=== PATIENT | female | born 1995 ===

== ENCOUNTER 2016-11-19 14:11 | Emergency (ER) | payer MEDICAID, OTHER ==
[2016-11-19 14:15] VITALS: BMI 18.6
[2016-11-19 14:19] VITALS: BP 106/68; PULSE 63; RESP 18; TEMP 98.3; O2SAT 100
--- NOTE | 2016-11-19 15:05 | ED PDOC ---
Arrival/HPI - General Chief Complaint: Lower Extremity Problem/Injury Time Seen by Provider: 11/19/16 15:03 Historian: Patient - History of Present Illness Narrative History of Present Illness (Text): 11/19/16 15:05 This 21 yo female presents to this ED c/o left medial foot pain x 3 days. Patient stated she tripped and fell , causing foot pain. Denies other complains. Denies head injury. Time/Duration: Other (3 days) Context: Home Past Medical History - Provider Review Nursing Documentation Reviewed: Yes - Past History Past History: No Previous - Infectious Disease Hx of Infectious Diseases: None - Tetanus Immunization Tetanus Immunization: Unknown - Psychiatric Hx Depression: No Hx Emotional Abuse: No Hx Physical Abuse: No Hx Substance Use: No - Surgical History Hx Tonsillectomy: Yes (2012) - Anesthesia Hx Anesthesia: Yes Hx Anesthesia Reactions: No - Suicidal Assessment Feels Threatened In Home Enviroment: No Family/Social History - Physician Review Nursing Documentation Reviewed: Yes Family/Social History: No Known Family HX Smoking Status: Never Smoked Hx Alcohol Use: No Hx Substance Use: No Hx Substance Use Treatment: No Allergies/Home Meds Allergies/Adverse Reactions: Allergies No Known Allergies Allergy (Verified 11/19/16 14:15) Home Medications: Home Meds Medication Instructions Recorded Confirmed Norethindrone-E.estradiol-Iron 1 tab PO DAILY 11/19/16 11/19/16 [ Tablet] Review of Systems - Review of Systems Constitutional: Normal. absent: Fatigue, Weight Change, Fevers Eyes: Normal ENT: Normal Respiratory: Normal Cardiovascular: Normal Gastrointestinal: Normal Genitourinary Female: Normal Musculoskeletal: Other (left foot pain) Skin: Normal Neurological: Normal Endocrine: Normal Hemo/Lymphatic: Normal Psychiatric: Normal Physical Exam Vital Signs Temp Pulse Resp BP Pulse Ox 11/19/16 14:18 98.3 F 63 18 106/68 100 Temperature: Afebrile Blood Pressure: Normal Pulse: Regular Respiratory Rate: Normal Appearance: Positive for: Well-Appearing, Non-Toxic, Comfortable Pain Distress: None Mental Status: Positive for: Alert and Oriented X 3 - Systems Exam Head: Present: Atraumatic, Normocephalic, Other (no raccoon sign. no dangelo sign) Pupils: Present: PERRL, Other (no hyphema) Extroacular Muscles: Present: EOMI Conjunctiva: Present: Normal Ears: Present: Normal, NORMAL TM, Normal Canal, Other (no hemotympanum). No: Erythema, TM Bulging, Fluid Mouth: Present: Moist Mucous Membranes Pharnyx: Present: Normal. No: ERYTHEMA, EXUDATE, TONSILS ENLARGED Nose (External): Present: Atraumatic Nose (Internal): Present: Normal Inspection Neck: Present: Normal Range of Motion, Trachea Midline, Other. No: Meningeal Signs, MIDLINE TENDERNESS, Paraspinal Tenderness Respiratory/Chest: Present: Clear to Auscultation, Good Air Exchange. No: Decreased Breath Sounds, Rales, Rhonchi, Tachypneic, Tender to Palpation Cardiovascular: Present: Regular Rate and Rhythm, Normal S1, S2. No: Murmurs Upper Extremity: Present: Normal Inspection, Normal ROM, NORMAL PULSES, Capillary Refill < 2s Lower Extremity: Present: Normal Inspection, NORMAL PULSES, Normal ROM, Tenderness (mild tenderness dorsla apsect of foot), Neurovascularly Intact, Capillary Refill < 2 s. No: Edema, CALF TENDERNESS, Swelling, Erythema Neurological: Present: GCS=15, CN II-XII Intact, Motor Func Grossly Intact, Normal Sensory Function, Normal Cerebellar Funct, Memory Normal Skin: Present: Warm, Dry, Normal Color. No: Rashes Psychiatric: Present: Alert, Oriented x 3 Medical Decision Making ED Course and Treatment: 11/19/16 16:06 Re-evaluation. Patient feels better. Discussed results and plan with patient who expresses understanding. All questions answered and there is agreement with the plan to discharge home with instructions. Patient stable for discharge. Return if symptoms persist or worsen. Re-evaluation Time: 16:06 Reassessment Condition: Re-examined, Improved - RAD Interpretation Narrative RAD Interpretations (Text): 11/19/16 16:06 Foot x-rays: No fx. or dislocation Radiology Orders: 11/19/16 15:03 FOOT LEFT 3 VIEWS ROUTINE [RAD] Stat - Medication Orders Current Medication Orders: Discontinued Medications Ibuprofen (Motrin Tab) 400 mg PO STAT STA Stop: 11/19/16 15:31 Last Admin: 11/19/16 15:34 Dose: 400 mg Disposition/Present on Arrival - Present on Arrival Any Indicators Present on Arrival: No History of DVT/PE: No History of Uncontrolled Diabetes: No Urinary Catheter: No History of Decub. Ulcer: No History Surgical Site Infection Following: None - Disposition Have Diagnosis and Disposition been Completed?: Yes Diagnosis: Foot pain Disposition: HOME/ ROUTINE Disposition Time: 16:07 Patient Plan: Discharge Condition: GOOD Discharge Instructions (ExitCare): Foot Sprain (ED) Additional Instructions: Call private doctor for follow up visit in 1-2 days. Take medication as instructed with food. Return to emergency if symptoms worsen. Prescriptions: Ibuprofen [Motrin] 400 mg PO Q8H PRN #20 tab PRN Reason: Pain, Severe (8-10) Referrals: Anshu Katz MD [Primary Care Provider] - Follow up with primary Jamison Gregorio DPM [Staff Provider] - Follow up with primary Forms: WORK NOTE
--- NOTE | 2016-11-19 16:17 | RAD ---
PROCEDURE: Left Foot Radiographs. HISTORY: foot pain COMPARISON: No prior study available for comparison. FINDINGS: BONES: No evidence of acute displaced fracture nor dislocation. The osseous structures appear intact. There are no cortical destructive changes seen JOINTS: . Joint spaces preserved. . SOFT TISSUES: Soft tissues unremarkable. OTHER FINDINGS: No radiopaque foreign bodies. IMPRESSION: No evidence of acute displaced fracture nor dislocation. Osseous structures appear intact. If symptoms persist or occult fracture suspected clinically consider repeat radiographs in 5-10 days as most fractures should become radiographically evident in this timeframe.
== END 2016-11-19 16:15 | disposition home or self-care (01) ==
LOC: ED 14:11
DX: M79.672 Pain in left foot (principal)

== ENCOUNTER 2018-04-14 19:15 | Emergency (ER) | payer SELFPAY ==
--- NOTE | 2018-04-14 19:57 | ED PDOC ---
Arrival/HPI <Law Cline - Last Filed: 04/14/18 20:19> - History of Present Illness Narrative History of Present Illness (Text): This is a 22 year old female with no significant PMH who presents with a 1 week history of itchy, red rash. Pt states that the rash, described as small bumps, started 1 week ago, but only began being itchy 4 days ago. Rash started on the arms, but is now more central. Pt has tried cortisone cream for the rash, without any relief of symptoms. Pt denies fever, chills, chest pain, difficulty breathing or swallowing, abdominal pain, n/v/d, recent travel to [facility]. Pt states that she is living with a relative who has a dog. PMD: [place] PMH: eczema PSH: tonsillectomy 2012 Meds: see MAR Allx: none Social history: denies etoh, smoking, drugs Time/Duration: 1 week Symptom Onset: Gradual Symptom Course: Worsening Associated Symptoms (Text): 04/14/18 19:49 pruritus <Joe Johnson - Last Filed: 04/15/18 04:15> - General Chief Complaint: Abnormal Skin Integrity Time Seen by Provider: 04/14/18 19:27 Past Medical History - Provider Review Nursing Documentation Reviewed: Yes - Past History Past History: No Previous - Infectious Disease Hx of Infectious Diseases: None - Tetanus Immunization Tetanus Immunization: Unknown - Reproductive Menopause: No - Cardiac Hx Cardiac Disorders: No - Pulmonary Hx Respiratory Disorders: No - Neurological Hx Neurological Disorder: No - HEENT Hx HEENT Disorder: Yes Other/Comment: Tonsilitis. - Renal Hx Renal Disorder: No - Endocrine/Metabolic Hx Endocrine Disorders: No - Hematological/Oncological Hx Blood Disorders: No - Integumentary Hx Dermatological Disorder: No - Musculoskeletal/Rheumatological Hx Musculoskeletal Disorders: No - Gastrointestinal Hx Gastrointestinal Disorders: No - Genitourinary/Gynecological Hx Genitourinary Disorders: No - Psychiatric Hx Psychophysiologic Disorder: No Hx Substance Use: No - Surgical History Hx Tonsillectomy: Yes (2012) - Anesthesia Hx Anesthesia: Yes Hx Anesthesia Reactions: No - Suicidal Assessment Feels Threatened In Home Enviroment: No <Joe Johnson - Last Filed: 04/15/18 04:15> Family/Social History - Physician Review Nursing Documentation Reviewed: Yes Family/Social History: Unknown Family HX Smoking Status: Never Smoked Hx Alcohol Use: No Hx Substance Use: No Hx Substance Use Treatment: No <Joe Johnson - Last Filed: 04/15/18 04:15> Allergies/Home Meds <Law Cline - Last Filed: 04/14/18 20:19> <RukhsanaNelson alvarengay - Last Filed: 04/15/18 04:15> Allergies/Adverse Reactions: Allergies No Known Allergies Allergy (Verified 11/19/16 14:15) Home Medications: Home Meds Medication Instructions Recorded Confirmed Norethindrone-E.estradiol-Iron 1 tab PO DAILY 11/19/16 11/19/16 [ Tablet] Review of Systems - Review of Systems Constitutional: Normal. absent: Fatigue, Fevers, Night Sweats Eyes: Normal ENT: Normal Respiratory: Normal. absent: SOB, Cough, Wheezing Cardiovascular: Normal. absent: Chest Pain, Palpitations Gastrointestinal: Normal. absent: Abdominal Pain, Diarrhea, Nausea, Vomiting Genitourinary Female: Normal Musculoskeletal: Normal. absent: Arthralgias, Joint Swelling Skin: Rash, Pruritis, Skin Lesions Neurological: Normal Endocrine: Normal Hemo/Lymphatic: Normal Psychiatric: Normal <TrenaelaineJoe - Last Filed: 04/15/18 04:15> Physical Exam Temperature: Afebrile Blood Pressure: Normal Pulse: Regular Respiratory Rate: Normal Appearance: Positive for: Well-Appearing, Non-Toxic, Comfortable Pain Distress: None Mental Status: Positive for: Alert and Oriented X 3 - Systems Exam Head: Present: Atraumatic, Normocephalic Conjunctiva: Present: Normal Mouth: Present: Moist Mucous Membranes Neck: Present: Normal Range of Motion Respiratory/Chest: Present: Clear to Auscultation. No: Respiratory Distress, Accessory Muscle Use, Wheezes, Rales, Retracting, Rhonchi Cardiovascular: Present: Regular Rate and Rhythm, Normal S1, S2 Abdomen: Present: Normal Bowel Sounds. No: Tenderness, Distention Upper Extremity: Present: Normal Inspection, NORMAL PULSES. No: Edema Lower Extremity: Present: Normal Inspection. No: CALF TENDERNESS, NORMAL PULSES Neurological: Present: GCS=15 Skin: Present: Warm, Dry, Rashes (diffuse erythematous, pruritic papular rash on the upper body only including chest arms and trunk (nothing on the face); blanching; no crusting, no vesicles), Normal Color Psychiatric: Present: Alert, Oriented x 3 <Joe Johnson - Last Filed: 04/15/18 04:15> Medical Decision Making ED Course and Treatment: Impression: Pt seen and evaluated with medical imaging specialist electrical parts reconditioner. Aware and agree with HPI, clinical findings, plan, and management. Pt, with no significant past medical history, presented for a pruritic rash for 1 week. Plan: -- Benadryl -- Prednisone -- Reassess and disposition - Medication Orders Current Medication Orders: Discontinued Medications Diphenhydramine HCl (Benadryl) 50 mg PO STAT STA Stop: 04/14/18 20:04 Prednisone (Prednisone Tab) 40 mg PO STAT STA Stop: 04/14/18 20:05 <Law Cline - Last Filed: 04/14/18 20:19> ED Course and Treatment: 04/14/18 20:00 Benadryl PO and prednisone PO 04/14/18 20:35 On re-evaluation pt reports that the itching is better. She continues to have no cardiopulmonary compromise and no other complaints. 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 Pt understands and agrees with discharge plan. Re-evaluation Time: 20:20 Reassessment Condition: Improving,but remains with symptoms <Joe Johnson - Last Filed: 04/15/18 04:15> - PA / SKYDIVING INSTRUCTOR / Resident Statement FINESSE has reviewed & agrees with the documentation as recorded. FINESSE has examined the patient and agrees with the treatment plan. <Law Cline - Last Filed: 04/14/18 20:19> Disposition/Present on Arrival <Law Cline - Last Filed: 04/14/18 20:19> - Present on Arrival Any Indicators Present on Arrival: No History of DVT/PE: No History of Uncontrolled Diabetes: No Urinary Catheter: No History of Decub. Ulcer: No History Surgical Site Infection Following: None - Disposition Have Diagnosis and Disposition been Completed?: Yes Disposition Time: 20:02 Patient Plan: Discharge <Joe Johnson - Last Filed: 04/15/18 04:15> - Disposition Diagnosis: Urticaria Disposition: HOME/ ROUTINE Condition: GOOD Discharge Instructions (ExitCare): Eczema (Atopic Dermatitis) (DC), Hives (DC) Prescriptions: DiphenhydrAMINE [Benadryl] 50 mg PO Q6 PRN #24 cap PRN Reason: Itching / Pruritus predniSONE [Prednisone] 40 mg PO DAILY #10 tab Forms: [facility] (Jordanian), WORK NOTE
[2018-04-14 20:02] VITALS: BMI 16.7
[2018-04-14 20:41] VITALS: BP 110/65; PULSE 68; RESP 18; TEMP 98.2; O2SAT 100
== END 2018-04-14 20:33 | disposition home or self-care (01) ==
LOC: ED 19:15
DX: L50.9 Urticaria, unspecified (principal)